=== PATIENT | male | born 1975 | race African-American/Black ===

== ENCOUNTER 2016-09-24 17:01 | Emergency (ER) | payer SELFPAY ==
[2016-09-24] MEDS ORDERED: DIPH/PERTUSS(ACELL)/TETANUS VAC/PF 0.5 ML SYR (>=10YO) IM ONE ×2 (18:40→23:11)
[2016-09-24] MEDS ORDERED: PROMETHAZINE HCL 25 MG TABLET PO ONE (18:41)
[2016-09-24] MEDS ORDERED: OXYCODONE-ACETAMINOPHEN 5-325 MG TABLET PO ONE (18:41)
--- NOTE | 2016-09-24 18:42 | ER Document Report ---
ED Medical Screen (RME) - General Chief Complaint: Laceration Stated Complaint: RIHGT FINGER INJURY Notes: Patient hit right index and middle fingers earlier this afternoon, sustaining lacerations of the dorsal aspects of the second and third fingers. The one over the PIP of the middle finger is minor. A more significant lacerations on the dorsal mid index finger which will require sutures. TRAVEL OUTSIDE OF THE [place] IN LAST 30 DAYS: No - Related Data Allergies/Adverse Reactions: No Known Allergies Allergy (Verified 09/24/16 17:49) Past Medical History Renal/ Medical History: Denies: Hx Peritoneal Dialysis Physical Exam - Vital signs Vitals: Temp Pulse Resp BP Pulse Ox 98.3 F 58 L 20 124/84 100 09/24/16 17:50 09/24/16 17:50 09/24/16 17:50 09/24/16 17:50 09/24/16 17:50 Course - Vital Signs Vital signs: Temp Pulse Resp BP Pulse Ox 98.3 F 58 L 20 124/84 100 09/24/16 17:50 09/24/16 17:50 09/24/16 17:50 09/24/16 17:50 09/24/16 17:50
[2016-09-24] MEDS ORDERED: LIDOCAINE 1% INJ-PF (10 MG/ML) 30 ML SDV INJ ONE (23:11)
[2016-09-24] MEDS ORDERED: HYDROCODONE/ACETAMINOPHEN 5-325 MG 6 TAB/DSPK PO PRN (23:11)
--- NOTE | 2016-09-24 23:13 | ER Document Report ---
ED Wound - General Chief Complaint: Laceration Stated Complaint: RIGHT FINGER INJURY Time seen by provider: 23:05 Notes: Patient is a 40-year-old male that comes emergency department for chief complaint of lacerations to the fingers of the right index and right middle fingers over the dorsal aspect, patient states that he was hammering stake into the ground and missed the stake, causing injury to his fingers from hitting the side of the stake. He is not UTD on his tetanus. He denies any other injuries. TRAVEL OUTSIDE OF THE [place] IN LAST 30 DAYS: No - Related Data Allergies/Adverse Reactions: No Known Allergies Allergy (Verified 09/24/16 17:49) Past Medical History - General Information source: Patient - Social History Smoking Status: Never Smoker Frequency of alcohol use: None Drug Abuse: None Lives with: Family Family History: Reviewed & Not Pertinent Patient has suicidal ideation: No Patient has homicidal ideation: No - Medical History Medical History: Negative Renal/ Medical History: Denies: Hx Peritoneal Dialysis Surgical Hx: Negative - Immunizations Immunizations up to date: Yes Hx Diphtheria, Pertussis, Tetanus Vaccination: Yes Review of Systems - Review of Systems Constitutional: No symptoms reported EENT: No symptoms reported Cardiovascular: No symptoms reported Respiratory: No symptoms reported Gastrointestinal: No symptoms reported Genitourinary: No symptoms reported Male Genitourinary: No symptoms reported Musculoskeletal: No symptoms reported Skin: See HPI Hematologic/Lymphatic: No symptoms reported Neurological/Psychological: No symptoms reported Physical Exam - Vital signs Vitals: Temp Pulse Resp BP Pulse Ox 98.3 F 58 L 20 124/84 100 09/24/16 17:50 09/24/16 17:50 09/24/16 17:50 09/24/16 17:50 09/24/16 17:50 Interpretation: Normal - General General appearance: Appears well, Alert In distress: None - HEENT Head: Normocephalic, Atraumatic Eyes: Normal Conjunctiva: Normal Extraocular movements intact: Yes Eyelashes: Normal Pupils: PERRL Sinus: Normal Nasal: Normal Mouth/Lips: Normal Mucous membranes: Normal Pharynx: Normal Neck: Normal - Respiratory Respiratory status: No respiratory distress Chest status: Nontender Breath sounds: Normal Chest palpation: Normal - Cardiovascular Rhythm: Regular Heart sounds: Normal auscultation Murmur: No - Abdominal Inspection: Normal Distension: No distension Bowel sounds: Normal Tenderness: Nontender Organomegaly: No organomegaly - Back Back: Normal, Nontender - Extremities General upper extremity: Other - Laceration over the dorsal aspect of the right index finger between the PIP and DIP, flap laceration, curved and almost 3 cm in length, partial thickness. Normal range of motion of the finger, normal capillary refill and sensation General lower extremity: Normal inspection, Nontender, Normal color, Normal ROM , Normal temperature, Normal weight bearing. No: Manny's sign - Neurological Neuro grossly intact: Yes Cognition: Normal Orientation: AAOx4 [place] Coma Scale Eye Opening: Spontaneous Renae Coma Scale Verbal: Oriented Renae Coma Scale Motor: Obeys Commands Renae Coma Scale Total: 15 Speech: Normal Motor strength normal: LUE, RUE, LLE, RLE Sensory: Normal - Psychological Associated symptoms: Normal affect, Normal mood - Skin Skin Temperature: Warm Skin Moisture: Dry Skin Color: Normal Course - Re-evaluation Re-evalutation: Middle finger wound cleaned and dressed, only superficial abrasion, right index dorsal wound cleansed, repaired, dressed. Close examination was performed and no evidence of tendon involvement was noted, no deficits on examination. X-ray reviewed and shows no abnormalities. Discussed wound care, follow-up, return precautions, patient states understanding and agreement - Vital Signs Vital signs: Temp Pulse Resp BP Pulse Ox 98.3 F 58 L 20 124/84 100 09/24/16 17:50 09/24/16 17:50 09/24/16 17:50 09/24/16 17:50 09/24/16 17:50 Procedures - Laceration/Wound Repair dorsal right index finger Wound length (cm): 3 Wound's Depth, Shape: Irregular, Flap Laceration pre-procedure: Sterile PPE donned, Sterile drapes applied, Other - Surgical cleanser Anesthetic type: 1% Lidocaine Volume Anesthetic (mLs): 3 Wound explored: Clean, No foreign body removed Irrigated w/ Saline (mLs): 50 Wound Repaired With: Sutures Suture Size/Type: 5:0, Nylon Number of Sutures: 8 Layer Closure?: No Post-procedure wound care: Sterile dressing applied Post-procedure NV exam normal: Yes Complications: No Discharge - Discharge Clinical Impression: Laceration of right index finger Disposition: HOME, SELF-CARE Instructions: Tetanus Immunization Given (OM) Additional Instructions: The x-ray does not show any abnormalities. Keep the sutures in for 7 days, after this they can be removed at a medical facility. Take the antibiotic as directed, clean gently with soap and water, avoid soaking , apply topical antibiotic. Return immediately for any signs of infection including redness, swelling, discolored drainage, fever, or any other concerning symptoms. Prescriptions: Sulfamethoxazole/Trimethoprim [Bactrim Ds Tablet] 1 each PO BID #10 tablet Forms: Return to Work
[2016-09-25 07:03] VITALS: BP 122/82
== END 2016-09-25 00:15 | disposition home or self-care (01) ==
LOC: ER 17:01
PROC: 0HQFXZZ Repair Right Hand Skin, External Approach (ICD-10-PCS; principal; 2016-09-24)
DX: S61.201A Unspecified open wound of left index finger without damage to nail, initial encounter (principal); W22.8XXA Striking against or struck by other objects, initial encounter
CPT/HCPCS: 90471; 90715; 99283

== ENCOUNTER 2017-05-04 03:47 | Emergency (ER) | payer BC ==
[2017-05-04 03:52] VITALS: BP 134/83
--- NOTE | 2017-05-04 04:20 | ER Document Report ---
ED ENT - General Mode of Arrival: Ambulatory Information source: Patient TRAVEL OUTSIDE OF THE [place] IN LAST 30 DAYS: No - HPI Patient complains to provider of: Ear problem Onset: Yesterday - General Chief Complaint: Ear Pain Stated Complaint: EAR PAIN Time Seen by Provider: 05/04/17 04:05 Notes: Patient is a 41 year old male presenting to the emergency department complaining of left ear pain onset last night. Patient states that the pain has been keeping him up all night. Patient also complains of nasal congestion and cough. Patient denies fever or runny nose. (CLIFFORD GIRON) - Related Data Allergies/Adverse Reactions: No Known Allergies Allergy (Verified 09/24/16 17:49) Past Medical History - General Information source: Patient - Social History Smoking Status: Current Every Day Smoker Cigarette use (# per day): No Chew tobacco use (# tins/day): No Smoking Education Provided: Yes - >4 mins Frequency of alcohol use: None Drug Abuse: None Family History: Reviewed & Not Pertinent - Immunizations Immunizations up to date: Yes Hx Diphtheria, Pertussis, Tetanus Vaccination: Yes Review of Systems - Review of Systems Constitutional: No symptoms reported EENT: See HPI, Ear pain, Nose congestion Cardiovascular: No symptoms reported Respiratory: No symptoms reported Gastrointestinal: No symptoms reported Genitourinary: No symptoms reported Male Genitourinary: No symptoms reported Musculoskeletal: No symptoms reported Skin: No symptoms reported Hematologic/Lymphatic: No symptoms reported Neurological/Psychological: No symptoms reported -: Yes All other systems reviewed and negative Physical Exam - Vital signs Vitals: Temp Pulse Resp BP Pulse Ox 97.9 F 58 L 18 134/83 H 100 05/04/17 03:49 05/04/17 03:49 05/04/17 03:49 05/04/17 03:49 05/04/17 03:49 - Notes Notes: GENERAL: Alert, interacts well. No acute distress. HEAD: Normocephalic, atraumatic. EYES: Pupils equal, round, and reactive to light. Extraocular movements intact. ENT: Oral mucosa moist, tongue midline. Nares patent, no nasal septal hematoma, left turbinate edema. left TM bulging, injected, opacified. Cobblestoning in posterior orophraynx. Tonsils slightly swollen. NECK: Full range of motion. Supple. Trachea midline. LUNGS: No respiratory distress. EXTREMITIES: Moves all 4 extremities spontaneously. NEUROLOGICAL: Alert and oriented x3. Normal speech. PSYCH: Normal affect, normal mood. SKIN: Warm, dry, normal turgor. No rashes or lesions noted. (CLIFFORD GIRON) Course - Re-evaluation Re-evalutation: 05/04/17 04:24 No evidence bacterial infection, consistent with viral otitis media, recommended trial nasal saline rinses, nasal steroids, decongestants. Patient is going to be given a wait and see prescription for antibiotics. Should he develop fever or his symptoms not improve by day #3 then he may start taking the antibiotics. Patient was also counseled on quitting smoking. (FRANCISCO TRIPATHI) - Vital Signs Vital signs: Temp Pulse Resp BP Pulse Ox 97.9 F 58 L 18 134/83 H 100 05/04/17 03:49 05/04/17 03:49 05/04/17 03:49 05/04/17 03:49 05/04/17 03:49 Discharge - Discharge Clinical Impression: Left acute otitis media, Viral upper respiratory illness, Pre-hypertension, Tobacco abuse, Tobacco abuse counseling Condition: Stable Disposition: HOME, SELF-CARE Additional Instructions: Please use nasal saline rinses such as a NetiPot or NeilMed Sinus Rinses. Use decongestants such as Sudafed during the day and Benadryl at night to decrease the pressure in your ear. Use the Nasonex, an over the counter nasal steroid, 1 squirt per nostril twice a day. If your symptoms do not improve within the next 3 days please start taking the antibiotic. If they do improve do not take the antibiotics. Prescriptions: Amoxicillin 1 tab PO TID #21 tab Forms: Smoking Cessation Education, Elevated Blood Pressure Referrals: CIERA AU MD [ACTIVE STAFF] - Follow up in 1 week Scribe Attestation: 05/04/17 04:48 I personally performed the services described in the documentation, reviewed and edited the documentation which was dictated to the scribe in my presence, and it accurately records my words and actions. (FRANCISCO TRIPATHI) Scribe Documentation - Scribe Written by Scribe:: Aida Hannah, 05/04/2017 04:21 acting as scribe for :: Rich
== END 2017-05-04 04:51 | disposition home or self-care (01) ==
LOC: ER 03:47
DX: H66.92 Otitis media, unspecified, left ear (principal); J06.9 Acute upper respiratory infection, unspecified; B97.89 Other viral agents as the cause of diseases classified elsewhere; R03.0 Elevated blood-pressure reading, without diagnosis of hypertension; H92.02 Otalgia, left ear; R09.81 Nasal congestion; R05 Cough; F17.200 Nicotine dependence, unspecified, uncomplicated
CPT/HCPCS: 99282; 99406

== ENCOUNTER 2017-05-10 18:26 | Emergency (ER) | payer BC ==
[2017-05-10] MEDS ORDERED: ACETAMINOPHEN 325 MG TABLET PO ONE (19:20)
[2017-05-10] MEDS ORDERED: KETOROLAC TROMETHAMINE INJ/PF 30 MG/1 ML SDV IV ONE (19:20)
--- NOTE | 2017-05-10 19:26 | ER Document Report ---
ED Flu Like - General Chief Complaint: Flu Symptoms Stated Complaint: FLU SYMPTOMS Time Seen by Provider: 05/10/17 19:08 Mode of Arrival: Ambulatory Information source: Patient Notes: 41-year-old male presents to ED for complaint of flulike symptoms. He states last night he started with a fever, hurting all over, achy, cough, and chest pain. TRAVEL OUTSIDE OF THE [place] IN LAST 30 DAYS: No - HPI Onset: Yesterday Timing/Duration: Intermittent Quality of pain: Achy, Cramping, Sharp Severity: Severe Pain Level: 5 CO exposure: No Associated symptoms: Body/muscle aches, Chest pain, Chills, Nonproductive cough , Fever, Headache, Rhinnorhea Similar symptoms previously: No - Related Data Allergies/Adverse Reactions: No Known Allergies Allergy (Verified 09/24/16 17:49) Past Medical History - General Information source: Patient - Social History Smoking Status: Current Every Day Smoker Cigarette use (# per day): Yes - ppd Chew tobacco use (# tins/day): No Smoking Education Provided: Yes - less than 2 min Frequency of alcohol use: None Drug Abuse: None Occupation: Construction Lives with: Family Family History: Reviewed & Not Pertinent Patient has suicidal ideation: No Patient has homicidal ideation: No - Past Medical History Cardiac Medical History: Reports: None Pulmonary Medical History: Reports: None EENT Medical History: Reports: None Neurological Medical History: Reports: None Endocrine Medical History: Reports: None Renal/ Medical History: Reports: None Malignancy Medical History: Reports None GI Medical History: Reports: None Musculoskeltal Medical History: Reports None Skin Medical History: Reports None Psychiatric Medical History: Reports: None Traumatic Medical History: Reports: None Infectious Medical History: Reports: None Surgical Hx: Negative Past Surgical History: Reports: None - Immunizations Immunizations up to date: Yes Hx Diphtheria, Pertussis, Tetanus Vaccination: Yes Review of Systems - Review of Systems Constitutional: No symptoms reported EENT: No symptoms reported Cardiovascular: No symptoms reported Respiratory: No symptoms reported Gastrointestinal: No symptoms reported Genitourinary: No symptoms reported Male Genitourinary: No symptoms reported Musculoskeletal: No symptoms reported Skin: No symptoms reported Hematologic/Lymphatic: No symptoms reported Neurological/Psychological: No symptoms reported -: Yes All other systems reviewed and negative Physical Exam - Vital signs Vitals: Temp Pulse BP Pulse Ox 102.9 F H 94 139/81 H 97 05/10/17 18:57 05/10/17 18:57 05/10/17 18:57 05/10/17 18:57 Interpretation: Normal - General General appearance: Appears well, Alert - HEENT Head: Normocephalic, Atraumatic Eyes: Normal Pupils: PERRL Ears: Normal External canal: Normal Tympanic membrane: Normal Sinus: Normal Nasal: Swelling, Clear rhinorrhea Mouth/Lips: Normal Mucous membranes: Normal Pharynx: Post nasal drainage Neck: Normal - Respiratory Respiratory status: No respiratory distress Chest status: Tender, Pain with cough, Pain with deep breathing Breath sounds: Nonproductive cough Chest palpation: Normal - Cardiovascular Rhythm: Regular Heart sounds: Normal auscultation Murmur: No - Abdominal Inspection: Normal Distension: No distension Bowel sounds: Normal Tenderness: Nontender Organomegaly: No organomegaly - Back Back: Normal, Nontender - Extremities General upper extremity: Normal inspection, Nontender, Normal color, Normal ROM , Normal temperature General lower extremity: Normal inspection, Nontender, Normal color, Normal ROM , Normal temperature, Normal weight bearing. No: Manny's sign - Neurological Neuro grossly intact: Yes Cognition: Normal Orientation: AAOx4 Renae Coma Scale Eye Opening: Spontaneous Renae Coma Scale Verbal: Oriented [place] Coma Scale Motor: Obeys Commands Renae Coma Scale Total: 15 Speech: Normal Motor strength normal: LUE, RUE, LLE, RLE Sensory: Normal - Psychological Associated symptoms: Normal affect, Normal mood - Skin Skin Temperature: Warm Skin Moisture: Dry Skin Color: Normal Course - Re-evaluation Re-evalutation: 05/11/17 02:14 X-ray showed a right lower lobe pneumonia. Patient was treated with Toradol IV IV fluids Rocephin and doxycycline while in the emergency room. Patient was discharged home with a prescription for doxycycline. His temperature came down to 98 pulse was in normal range patient states he felt considerably better by the time he was discharged. He stated he has sweated out his fever several times but since he had come to the emergency room. Labs and x-ray discussed with Dr. Rodríguez before discharge and he agreed the patient could be discharged home safely - Vital Signs Vital signs: Temp Pulse Resp BP Pulse Ox 98.1 F 74 17 111/50 L 94 05/10/17 22:37 05/10/17 22:37 05/10/17 22:37 05/10/17 22:37 05/10/17 22:37 - Laboratory Result Diagrams: 05/10/17 19:55 05/10/17 21:05 Laboratory results interpreted by me: 05/10/17 05/10/17 05/10/17 19:30 19:55 21:05 WBC 14.6 H Seg Neutrophils % 82.4 H Lymphocytes % 7.0 L Absolute Neutrophils 12.1 H Potassium 3.5 L Creatinine 1.27 H Glucose 158 H Total Bilirubin 2.8 H Direct Bilirubin 0.8 H AST 80 H ALT 114 H Urine Protein 30 H Urine Bilirubin SMALL H Urine Urobilinogen 4.0 H Ur Leukocyte Esterase TRACE H Urine Ascorbic Acid 40 H - Diagnostic Test Radiology reviewed: Image reviewed, Reports reviewed Discharge - Discharge Clinical Impression: Pneumonia Qualifiers: Pneumonia type: due to unspecified organism Laterality: right Lung location: lower lobe of lung Qualified Code(s): J18.1 - Lobar pneumonia, unspecified organism Condition: Stable Disposition: HOME, SELF-CARE Instructions: Family Physicians / Practices Additional Instructions: PNEUMONIA: Your examination indicates that you have pneumonia. This is an infection of the lung tissue, usually caused by bacteria or a virus. Symptoms include cough, fever, shaking chills, chest pain, shortness of breath, and coughing up bloody sputum. Treatment for bacterial pneumonia includes rest, antibiotics for 10 to 14 days, increasing your clear liquid intake, a cool mist humidifier at your bedside, and fever medication. Often, a repeat chest X-ray is performed in a few weeks--even if you feel better--to ascertain whether the infection has completely resolved and no underlying lung problem is present. You should call the physician if you develop persistent vomiting, high fever that does not respond to fever medication, increasing shortness of breath , confusion, or lethargy. Also, failure to improve within two to three days is an indication for re-examination. ROCEPHIN: You have been given an injection of an antibiotic called Rocephin ( ceftriaxone). Sometimes the injection must be combined with antibiotic pills. For some infections, such as an uncomplicated ear infection, Rocephin provides all the antibiotic that's needed. The antibiotic will be in your body for about two days. For serious infections, we usually repeat doses of Rocephin daily. Side effects are very unusual following a shot. Women may develop vaginal yeast infections, and babies can get yeast (thrush) in the mouth following the use of antibiotics. Contact your physician if you have symptoms with this medication. Allergy to this antibiotic can result in hives, wheezing, faintness, or itching. If symptoms of allergy occur, call the doctor at once. DOXYCYCLINE: Doxycycline (Vibramycin, Doryx) is an antibiotic of the tetracycline family. This type of drug is useful for infections of the respiratory tract and genital tract, and is sometimes used for intestinal infections. Unlike most tetracyclines, doxycycline can be taken with food. It is longer acting, and (usually) less prone to side effects than regular tetracycline. Tetracycline antibiotics can stain immature teeth and SHOULD NOT BE TAKEN BY CHILDREN, NURSING MOTHERS, OR WOMEN. Tetracyclines can make you more prone to sunburn. Abdominal cramping, nausea, and diarrhea are occasional side effects. Women may experience vaginal yeast infections. Call the doctor at once if you develop hives, itching, shortness of breath , or lightheadedness. AMOXICILLIN: Amoxicillin is a member of the penicillin family. It covers the germs likely to cause ear, bronchial, and urinary infections better than plain penicillin. Amoxicillin can be taken without regard to meals. Nausea after taking the medication is rare, but can occur. Diarrhea can occur, particularly in small children. Vaginal yeast infections and oral thrush in infants are also common. Contact your physician if these problems occur. Allergy to penicillins is common. If you have had an allergic reaction to any drug of the penicillin family, you should never take any other penicillin. Notify your doctor at once if you develop hives, itching, swelling, faintness, or shortness of breath. Less serious side effects can include nausea or diarrhea. USE OF ACETAMINOPHEN (Tylenol): Acetaminophen may be taken for pain relief or fever control. It's much safer than aspirin, offering a wider range of "safe" dosages. It is safe during . Some brand names are Tylenol, Panadol, Datril, Anacin 3, Tempra, and Liquiprin. Acetaminophen can be repeated every four hours. The following are maximum recommended dosages: WEIGHT Dose Drops Elixir Chewable( 80mg) (LBS.) drprs=droppers tsp=teaspoon 6 40 mg 0.4 ml (1/2) 6-11 80 mg 0.8 ml (full) tsp 1 tab 12-16 120 mg 1 1/2 drprs 3/4 tsp 1 1/2 tabs 17-23 160 mg 2 drprs 1 tsp 2 tabs 24-30 240 mg 3 drprs 1 1/2 tsp 3 tabs 30-35 320 mg 2 tsp 4 tabs 36-41 360 mg 2 1/4 tsp 4 1/2 tabs 42-47 400 mg 2 1/2 tsp 5 tabs 48-53 480 mg 3 tsp 6 tabs 54-59 520 mg 3 1/4 tsp 6 1/2 tabs 60-64 560 mg 3 1/2 tsp 7 tabs 65-70 600 mg 3 3/4 tsp 7 1/2 tabs 71-76 640 mg 4 tsp 8 tabs 77-82 720 mg 4 1/2 tsp 9 tabs 83-88 800 mg 5 tsp 10 tabs >89 pounds or adults 650 mg to 900 mg Acetaminophen can be repeated every four hours. Maximum dose not to exceed 4000 mg a day. These maximum recommended dosages are slightly higher than the dosages written on the product container, but these dosages are very safe and below the toxic dosage for acetaminophen. SMOKING: If you smoke, you should stop smoking. The tar and chemicals in cigarette smoke are harmful. Smoking has been shown to cause: emphysema chronic bronchitis lung cancer mouth and throat cancer stomach and pancreas cancer premature aging defects In addition, smoking increases ear and lung infections in children of smokers. FOLLOW-UP CARE: If you have been referred to a physician for follow-up care, call the physician s office for an appointment as you were instructed or within the next two days. If you experience worsening or a significant change in your symptoms, notify the physician immediately or return to the Emergency Department at any time for re-evaluation. Please follow-up with primary doctor before returning to work. These increase fluid intake of non-caffeinated beverages. Prescriptions: Doxycycline Hyclate 100 mg PO BID #20 tablet Forms: Smoking Cessation Education, Return to Work
[2017-05-10] MEDS: NORMAL SALINE 1000 ML 1,000 ML IV PRN ×2 (20:03→22:36)
[2017-05-10 20:27] LABS: ABSOLUTE EOSINOPHILS # (AUTO) 0.1 10^3/uL (0.0-0.6); ABSOLUTE MONOCYTES (AUTO) 1.4 10^3/uL (0.1-1.4); ABSOLUTE NEUT (AUTO) 12.1 10^3/uL (1.7-8.2); BASOPHILS % (AUTO) 0.2 % (0-2); EOSINOPHILS % (AUTO) 0.5 % (0-6); HEMATOCRIT 41.1 % (37.9-51.0); HEMOGLOBIN 14.2 g/dL (13.5-17.0); HGB HCT DIFFERENCE 1.5; MEAN CORPUSCULAR HEMOGLOBIN 29.7 pg (27.0-33.4); MEAN CORPUSCULAR HGB CONC 34.5 g/dL (32.0-36.0); MEAN CORPUSCULAR VOLUME 86 fl (80-97); MONOCYTES % (AUTO) 9.9 % (3-13); RED BLOOD COUNT 4.77 10^6/uL (4.35-5.55); RED CELL DISTRIBUTION WIDTH 13.3 % (11.5-14.0); SEGMENTED NEUTROPHILS % (AUTO) 82.4 % (42-78); WHITE BLOOD COUNT 14.6 10^3/uL (4.0-10.5)
[2017-05-10 20:29] LABS: APPEARANCE,URINE CLEAR; BILIRUBIN,URINE SMALL (NEGATIVE); GLUCOSE, URINE NEGATIVE (NEGATIVE); KETONES,URINE NEGATIVE (NEGATIVE); LEUKOCYTE ESTERASE,URINE TRACE (NEGATIVE); NITRITE,URINE NEGATIVE (NEGATIVE); PROTEIN,URINE 30 mg/dL (NEGATIVE); URINE SPECIFIC GRAVITY 1.036
[2017-05-10 20:41] LABS: BACTERIA,URINE TRACE /HPF; RBC,URINE 0-1 /HPF
--- NOTE | 2017-05-10 20:43 | RADIOLOGY REPORT (SQ) ---
EXAM DESCRIPTION: CHEST PA/LAT COMPLETED DATE/TIME: 05/10/2017 8:28 pm REASON FOR STUDY: cough fever chest pain COMPARISON: None. EXAM PARAMETERS: NUMBER OF VIEWS: two views TECHNIQUE: Digital Frontal and Lateral radiographic views of the chest acquired. RADIATION DOSE: NA LIMITATIONS: none FINDINGS: LUNGS AND PLEURA: No pneumothorax. Small amount of patchy airspace disease in the right l ower lobe. No pleural effusion. MEDIASTINUM AND HILAR STRUCTURES: No masses or contour abnormalities. HEART AND VASCULAR STRUCTURES: Heart normal size. No evidence for failure. BONES: No acute findings. HARDWARE: None in the chest. OTHER: No other significant finding. IMPRESSION: Small amount of patchy airspace disease in the right lower lobe. No pleural effusion. TECHNICAL DOCUMENTATION: JOB ID: [id number] [place]-[id number] 2010 [employer]- All Rights Reserved
[2017-05-10] MEDS ORDERED: CEFTRIAXONE 2 GM/D5W RTU 2 GM/50 ML RTUPB IV ONE (21:42)
[2017-05-10] MEDS ORDERED: DOXYCYCLINE HYCLATE 100 MG TABLET PO ONE (21:43)
[2017-05-10 21:53] LABS: ALANINE AMINOTRANSFERASE 114 U/L (21-72); ALBUMIN 3.7 g/dL (3.5-5.0); ALKALINE PHOSPHATASE 83 U/L (38-126); ANION GAP 12 (5-19); ASPARTATE AMINO TRANSFERASE 80 U/L (17-59); BILIRUBIN,DIRECT 0.8 mg/dL (0.0-0.4); BILIRUBIN,TOTAL 2.8 mg/dL (0.2-1.3); BLOOD UREA NITROGEN 12 mg/dL (7-20); CALCIUM 8.8 mg/dL (8.4-10.2); CARBON DIOXIDE 23 mmol/L (22-30); CHLORIDE 107 mmol/L (98-107); CREATININE RESULT 1.27 mg/dL (0.52-1.25); GLUCOSE 158 mg/dL (75-110); SODIUM 142.4 mmol/L (137-145); TOTAL PROTEIN 6.9 g/dL (6.3-8.2)
[2017-05-10 21:57] LABS: POTASSIUM 3.5 mmol/L (3.6-5.0)
[2017-05-10 22:38] VITALS: BP 111/50
== END 2017-05-11 00:06 | disposition home or self-care (01) ==
LOC: ER 18:26
DX: J18.1 Lobar pneumonia, unspecified organism (principal); R50.9 Fever, unspecified; R07.9 Chest pain, unspecified; M79.1 Myalgia; F17.210 Nicotine dependence, cigarettes, uncomplicated
CPT/HCPCS: 99284; 96361; 96375; 96365; 36415; 87040; 82550; 85025; 80053; 81001; 83605; 87804; 71020; J1885; J7030; J0696